=== PATIENT | male | born 1985 | race Caucasian/White ===

== ENCOUNTER → 2019-05-24 | Outpatient (CLI) | payer OTHER ==
--- NOTE | 2019-05-25 07:50 | RAD ---
EXAM DESCRIPTION: Fingers,Right (accession [id number]), Hand,Right 3 Views (accession [id number]): CR/DR/XR CLINICAL HISTORY: 34 years Male LOCALIZED SWELLING, MASS, LUMP, UNSPECIFIED COMPARISON: None. TECHNIQUE: 3 VIEWS AP. Lateral. Oblique. Right index finger. 3 views AP lateral and oblique right wrist and hand. FINDINGS: Normal bone density in the right index finger with no fracture or dislocation. Joint spaces are unremarkable. Minimal soft tissue swelling between the thumb and index finger but otherwise negative findings in the soft tissues. Right hand with normal bone density. No fracture or dislocation. Narrowing of the thumb carpometacarpal joint and minimal periarticular sclerosis. No abnormal radiodense objects in the joint spaces or soft tissues. Minimal soft tissue swelling between the thumb and index finger. IMPRESSION: 1. No acute bony or joint margin abnormality right index finger. Minimal soft tissue swelling between the thumb and index finger. 2. 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 No acute bony or joint margin abnormalities in the right hand or wrist. Electronically signed by: Alvarez Holland MD 05/25/2019 7:49 AM CDT
--- NOTE | 2019-05-25 07:51 | RAD ---
EXAM DESCRIPTION: Fingers,Right (accession [id number]), Hand,Right 3 Views (accession [id number]): CR/DR/XR CLINICAL HISTORY: 34 years Male LOCALIZED SWELLING, MASS, LUMP, UNSPECIFIED COMPARISON: None. TECHNIQUE: 3 VIEWS AP. Lateral. Oblique. Right index finger. 3 views AP lateral and oblique right wrist and hand. FINDINGS: Normal bone density in the right index finger with no fracture or dislocation. Joint spaces are unremarkable. Minimal soft tissue swelling between the thumb and index finger but otherwise negative findings in the soft tissues. Right hand with normal bone density. No fracture or dislocation. Narrowing of the thumb carpometacarpal joint and minimal periarticular sclerosis. No abnormal radiodense objects in the joint spaces or soft tissues. Minimal soft tissue swelling between the thumb and index finger. IMPRESSION: 1. No acute bony or joint margin abnormality right index finger. Minimal soft tissue swelling between the thumb and index finger. 2. 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 No acute bony or joint margin abnormalities in the right hand or wrist. Electronically signed by: Alvarez Holland MD 05/25/2019 7:49 AM CDT
== END ==
LOC: RAD 07:55
PROVIDERS: ATTEND Orthopaedic Surgery
DX: R22.9 Localized swelling, mass and lump, unspecified (principal); M18.11 Unilateral primary osteoarthritis of first carpometacarpal joint, right hand

== ENCOUNTER → 2020-09-10 | Outpatient (CLI) | payer OTHER | LOC: YCFC.O 14:04 | PROVIDERS: ATTEND Nurse Practitioner Family | DX: Z20.828 Contact with and (suspected) exposure to other viral communicable diseases (principal) ==